=== PATIENT | female | born 1990 | race Caucasian/White ===

== ENCOUNTER 2023-02-09 17:27 | Emergency (ER) | payer MEDICAID | END 2023-02-09 20:35 | disposition home or self-care (01) | LOC: MW.ED 17:27 | DX: S94.22XA Injury of deep peroneal nerve at ankle and foot level, left leg, initial encounter (principal); M21.372 Foot drop, left foot; I10 Essential (primary) hypertension; X58.XXXA Exposure to other specified factors, initial encounter | CPT/HCPCS: 93971-26-LT; 93971-LT; 99283; 99284 ==